=== PATIENT | female | born 1995 | race Caucasian/White ===

== ENCOUNTER 2022-05-23 06:11 | Inpatient (IN) | payer BC ==
[2022-05-23] MEDS: LACTATED RINGERS 1,000 ML IV SCH ×2 (06:35→20:08)
[2022-05-23] MEDS ORDERED: LIDOCAINE 0.5% (PF) 5 MG/ML (50 ML SDV) SQ PRN (06:42)
[2022-05-23] MEDS ORDERED: TERBUTALINE 1 MG/ML VIAL SQ PRN (06:42)
[2022-05-23 06:54] LABS: Basophils % (A) 0 %; Eosinophils # (A) 0.2 k/uL (0-0.7); Eosinophils % (A) 2 %; HCT 32.4 % (34.0-46.0); HGB 10.6 gm/dL (11.4-16.0); Lymphocytes # (A) 1.9 k/uL (1.0-4.8); Lymphocytes % (A) 24 %; MCH 27.7 pg (25.0-35.0); MCHC 32.6 g/dL (31.0-37.0); Mean Platelet Volume 9.1; Monocytes # (A) 0.3 k/uL (0-1.0); Monocytes % (A) 4 %; Neutrophils # (A) 5.5 k/uL (1.3-7.7); Neutrophils % (A) 68 %; Platelet Count 209 k/uL (150-450); RBC 3.81 m/uL (3.80-5.40); RDW 13.2 % (11.5-15.5); WBC 8.1 k/uL (3.8-10.6)
[2022-05-23] MEDS: OXYTOCIN 30 UNITS/500 ML NS 30 UNIT in SALINE 1 500ML.BAG IV SCH ×2 (06:59→16:37)
--- NOTE | 2022-05-23 07:54 | P.HPOB ---
History of Present Illness H&P Date: 05/23/22 Chief Complaint: Here for induction of labor with favorable cervix This is a 26-year-old female 1 para 0 EDC 05/25/2022 at 39-5/7 weeks' gestation who presents this morning for induction. Fetus is been active throughout the . She denies vaginal bleeding or fluid leakage. Past medical history is negative. Past surgical history is negative. ALLERGIES none known. Family history essentially negative. Social history patient is a former tobacco smoker, none with . She is , her is present and involved. She denies alcohol or drug use. history is significant for blood type AB+, rubella status immune. VDRL testing, urine culture, hepatitis B surface antigen, HIV testing, gonorrhea and chlamydia cultures, group B strep cultures all negative. One-hour Glucola 120. On exam patient is 5 foot 6 inches, 194 pounds, blood pressure 111/69. General exam is within normal limits. Cervix is 4 cm dilated, 70% effaced, -1 station, vertex presentation. Artificial amniorrhexis reveals clear fluid. heart rate is consistent with reactive NST. Impression: 39-5/7 weeks intrauterine , here for induction of labor, all signs reassuring. Plan: Oxytocin per hospital protocol. Close maternal and surveillance. Analgesic options reviewed. Anticipate normal spontaneous vaginal delivery. Review of Systems Constitutional: Reports as per HPI Past Medical History Past Medical History: No Reported History History of Any Multi-Drug Resistant Organisms: None Reported Past Surgical History: No Surgical Hx Reported Past Anesthesia/Blood Transfusion Reactions: No Reported Reaction Past Psychological History: No Psychological Hx Reported Smoking Status: Current every day smoker Past Alcohol Use History: Occasional Past Drug Use History: None Reported Medications and Allergies Home Medications Medication Instructions Recorded Confirmed Type Vit No.179/Iron/Folic 1 each PO 05/23/22 History [ Tablet] Allergies Allergy/AdvReac Type Severity Reaction Status Date / Time No Known Allergies Allergy Verified 05/23/22 06:27 Exam Vital Signs Temp Pulse Resp BP Pulse Ox 05/23/22 06:20 97.1 F L 100 16 111/69 99 Intake and Output 05/22/22 05/23/22 05/23/22 22:59 06:59 14:59 Other: Weight 87.997 kg See dictation under HPI please Results Result Diagrams: 05/23/22 06:40 Abnormal Lab Results - Last 24 Hours (Table) 05/23/22 Range/Units 06:40 Hgb 10.6 L (11.4-16.0) gm/dL Hct 32.4 L (34.0-46.0) % Assessment and Plan Assessment: 39-5/7 weeks intrauterine , here for induction of labor with favorable cervix. All signs reassuring. Plan: Continue close maternal and surveillance. Oxytocin per hospital protocol. Analgesic options reviewed in detail. Anticipate normal spontaneous vaginal delivery. Time with Patient: Less than 30
[2022-05-23] MEDS ORDERED: BUTORPHANOL 1 MG/ML 1 ML VIAL IV PRN (12:20)
[2022-05-23] MEDS ORDERED: BENZOCAINE/MENTHOL SPRAY 1 GM/SPRAY AEROSOL TOPICAL PRN (16:28)
[2022-05-23] MEDS ORDERED: diphenhydrAMINE 25 MG CAP PO PRN (16:28)
[2022-05-23] MEDS ORDERED: diphenhydrAMINE 50 MG CAP PO PRN (16:28)
[2022-05-23] MEDS ORDERED: LANOLIN CREAM 5 GM TUBE TOPICAL PRN (16:28)
[2022-05-23] MEDS ORDERED: SIMETHICONE 80 MG CHEWABLE PO PRN (16:28)
[2022-05-23] MEDS ORDERED: HYDROCORTISONE 2.5% RECTAL CREAM 30 GM TUBE RECTAL PRN (16:28)
[2022-05-23] MEDS ORDERED: ZOLPIDEM 5 MG TAB PO PRN (16:28)
[2022-05-23] MEDS ORDERED: diphenhydrAMINE ELIXIR 25 MG/10 ML CUP PO PRN (16:28)
[2022-05-23] MEDS ORDERED: diphenhydrAMINE 50 MG/ML 1 ML VIAL IVP PRN ×2 (16:28)
[2022-05-23] MEDS ORDERED: ACETAMINOPHEN TAB 325 MG TAB PO PRN (16:28)
--- NOTE | 2022-05-23 16:28 | P.PROBDLV ---
Vaginal Delivery Note - . Vaginal Delivery Note: This is a 26-year-old female 1 para 0 EDC 05/25/2022 at 39-5/7 weeks' gestation who presented for induction with favorable cervix. Blood type is AB+, rubella status immune, group B strep cultures negative. Please see dictated history and physical for details. Artificial amniorrhexis revealed clear fluid. Oxytocin was started and titrated per hospital protocol. Patient progressed well through the first stage of labor, declining epidural, receiving Stadol 1. She became completely dilated at 1514 hrs. and began the second stage of labor at that time. Excellent maternal expulsive efforts were employed. Perineal body was ultimately prepped and draped in the usual sterile fashion. 's head delivered occiput anterior and she restituted accordingly. There was no nuchal cord noted. The right or anterior shoulder was gently delivered from underneath the pubic symphysis at which time the oropharynx, nasopharynx and external nares were bulb suctioned. Patient officially delivered a liveborn female at 1603 hrs. Umbilical cord was doubly clamped and ligated, she was handed to waiting nurses for evaluation where scores of 9 and 9 at one and 5 minutes respectively were given. Careful inspection of the cervix, vagina, perineum, periurethral, and perirectal areas revealed a small left perineal laceration easily repaired in the usual fashion utilizing 1% lidocaine and rapide suture. Fundus is firm and in the midline, symmetric and 18 week size upon completion of delivery. Infant weighs 3735 g or 8 lbs. 4 oz. Estimated blood loss 250 mL's. Patient and her family are allowed to begin the bonding experience in the LDR.
[2022-05-23] MEDS: IBUPROFEN 600 MG TAB PO SCH (16:37)
[2022-05-23] MEDS: SENNOSIDES-DOCUSATE SODIUM 1 EACH TAB PO SCH ×2 (20:11→20:34)
[2022-05-24] MEDS: LACTATED RINGERS 1,000 ML IV SCH ×2 (01:04→10:05)
[2022-05-24] MEDS: IBUPROFEN 600 MG TAB PO SCH ×6 (01:04→23:51)
[2022-05-24] MEDS: SENNOSIDES-DOCUSATE SODIUM 1 EACH TAB PO SCH ×2 (10:05→19:51)
--- NOTE | 2022-05-24 10:55 | P.DS ---
Providers Date of admission: 05/23/22 06:11 Expected date of discharge: 05/24/22 Attending physician: Tegan Strange Primary care physician: Stated None - Discharge Diagnosis(es) (1) Normal spontaneous vaginal delivery Current Visit: Yes Status: Acute Hospital Course: the patient is a 26-year-old 1 para 0 admitted at 39-5/7 weeks by good dating parameters. She is admitted for induction with all signs reassuring. Her has been uncomplicated and group B strep status is negative. On labor and delivery, she had Pitocin started followed by artificial rupture of membranes. she progressed through the active phase of labor to complete and pushed to a normal spontaneous vaginal delivery of a viable 8 lbs. 4 oz. baby girl with Apgars of 9 at 1 minute and 9 at 5 minutes. Her course was unremarkable vital signs remained stable and her temperature was afebrile throughout. She was deemed stable for discharge on day #1 was discharged home to follow-up in the office in 6 weeks' time routinely. Discharge instructions included calling for any significantly increased bleeding or foul-smelling lochia, significantly increased fever or abdominal pain, perineal complaints, breast complaints, or anything else that concerned her. She is additionally instructed to have nothing in the vagina for at least 6 weeks time to include intercourse. She understood her instructions and agrees to follow up as noted above. Discharge medications included continued vitamins as she has opted to breast-feed. She was otherwise to use [id number] analgesic pain medications as needed. Maternal blood type is AB+ and rubella status is immune. Procedures: #1. Pitocin induction #2. Artificial rupture of membranes #3. Normal spontaneous vaginal delivery #4. Repair of perineal laceration Patient Condition at Discharge: Stable Plan - Discharge Summary New Discharge Prescriptions: No Action Vit No.179/Iron/Folic [ Tablet] 1 each PO Discharge Medication List Vit No.179/Iron/Folic [ Tablet] 1 each PO 05/23/22 [History] Follow up Appointment(s)/Referral(s): Tegan Strange MD [STAFF PHYSICIAN] - 6 Weeks Discharge Disposition: HOME SELF-CARE
[2022-05-24 23:56] VITALS: RESP 16
[2022-05-25] MEDS: SENNOSIDES-DOCUSATE SODIUM 1 EACH TAB PO SCH (08:26)
[2022-05-25 12:17] VITALS: BP 120/74; PULSE 77; TEMP 97.6
== END 2022-05-25 13:40 | disposition home or self-care (01) | DRG 807 ==
LOC: 4FBP 06:11
PROVIDERS: ADMIT Obstetrics & Gynecology; ATTEND Obstetrics & Gynecology
PROC: 0HQ9XZZ Repair Perineum Skin, External Approach (ICD-10-PCS; principal; 2022-05-23)
PROC: 10907ZC Drainage of Amniotic Fluid, Therapeutic from Products of Conception, Via Natural or Artificial Opening (ICD-10-PCS; principal; 2022-05-23)
PROC: 10E0XZZ Delivery of Products of Conception, External Approach (ICD-10-PCS; principal; 2022-05-23)
PROC: 3E033VJ Introduction of Other Hormone into Peripheral Vein, Percutaneous Approach (ICD-10-PCS; principal; 2022-05-23)
DX: O71.82 Other specified trauma to perineum and vulva (principal); Z37.0 Single live birth; O99.334 Smoking (tobacco) complicating childbirth; F17.210 Nicotine dependence, cigarettes, uncomplicated; Z3A.39 39 weeks gestation of pregnancy
CPT/HCPCS: 85025; 86850; 86900; 86901

== ENCOUNTER 2023-05-20 16:07 | Emergency (ER) | payer BC ==
[2023-05-20 16:34] VITALS: BP 125/78; PULSE 79; RESP 18; TEMP 97.8
--- NOTE | 2023-05-20 16:43 | ED ---
Chest Pain HPI - General Chief Complaint: Chest Pain Stated Complaint: chest pain L arm numbness Time Seen by Provider: 05/20/23 16:41 Source: patient, RN notes reviewed Mode of arrival: ambulatory Limitations: no limitations - History of Present Illness Initial Comments: This is a 27-year-old female who presents to the emergency department for chest pain and a lump in her neck. She noticed the lump in the left side of her neck approximately 3 weeks ago. Believes that it is getting smaller, however it is painful. She is also having pain going around and down the back of the neck, and wonders if it may be related to this. Denies any history of similar symptoms in the past. She has not had any coughing, congestion, or other upper respiratory symptoms. Yesterday, states that she developed pain in the chest as well as discomfort in the left arm. She had shortness of breath associated with this. The chest pain has since improved, however she does continue to have residual shortness of breath. Also states that she feels very dizzy, which has also been present for the last 3 weeks. She has increased her water consumption without improvement in symptoms. MD Complaint: chest pain - Related Data Home Medications Medication Instructions Recorded Confirmed Vit No.179/Iron/Folic 1 tab PO DAILY 05/23/22 05/20/23 [ Tablet] Amoxicillin 500 mg PO Q8H 05/20/23 05/20/23 Allergies Allergy/AdvReac Type Severity Reaction Status Date / Time No Known Allergies Allergy Verified 05/20/23 21:45 Review of Systems ROS Statement: Those systems with pertinent positive or pertinent negative responses have been documented in the HPI. ROS Other: All systems not noted in ROS Statement are negative. Past Medical History Past Medical History: No Reported History History of Any Multi-Drug Resistant Organisms: None Reported Past Surgical History: No Surgical Hx Reported Past Anesthesia/Blood Transfusion Reactions: No Reported Reaction Past Psychological History: No Psychological Hx Reported Smoking Status: Current every day smoker Past Alcohol Use History: Occasional Past Drug Use History: None Reported General Exam - General Exam Comments Initial Comments: Visual Physical Exam Vital signs reviewed General: Well-appearing, nontoxic, no acute distress. Head: Normocephalic, atraumatic Eyes: PERRLA, EOMI ENT: Airway patent Chest: Nonlabored breathing Skin: No visual rash, normal skin tone Neuro: Alert and oriented 3 Musculoskeletal: No gross abnormalities Limitations: no limitations General appearance: alert, in no apparent distress Head exam: Present: atraumatic, normocephalic, normal inspection Neck exam: Present: other (Palpable lump to the left lateral aspect of the cervical spine) Respiratory exam: Present: normal lung sounds bilaterally. Absent: respiratory distress, wheezes, rales, rhonchi, stridor Cardiovascular Exam: Present: regular rate, normal rhythm, normal heart sounds. Absent: systolic murmur, diastolic murmur, rubs, gallop, clicks Neurological exam: Present: alert, oriented X3, CN II-XII intact Psychiatric exam: Present: normal affect, normal mood Skin exam: Present: warm, dry, intact, normal color. Absent: rash Course Vital Signs 05/20/23 16:13 Temperature 97.8 F Pulse Rate 79 Respiratory 18 Rate Blood Pressure 125/78 O2 Sat by Pulse 100 Oximetry Chest Pain MDM - MDM This is a 27 year old female who presents to the emergency department for chest pain and a lump to the left side of her neck. Was pt. sent in by a medical professional or institution? @ -No Did you speak to anyone other than the patient for history? @ -No Did you review nursing and triage notes? @ -Yes, and I agree, it is accurate with regards to the patient's symptoms. Were old charts reviewed? @ -No Differential Diagnosis? @ -Differential Chest Pain: Stable Angina, Unstable Angina, STEMI, NSTEMI Aortic Dissection, Pneumothorax, Musculoskeletal, Esophageal Spasm GERD, Cholecystitis, Pancreatitis, Zoster, this is not meant to be an all-inclusive list. EKG interpreted by me (3pts min.)? @ -EKG interpreted by me demonstrating the following: Sinus rhythm. Darvin tricular rate 79 bpm, UT interval 128 ms, QRS duration 79 ms, QTC 400 ms. X-rays interpreted by me (1pt min.)? @ -Chest x-ray obtained, my interpretation identifies no localized consolidations or infiltrates. CT interpreted by me (1pt min.)? @ -CT scan of the neck and chest obtained. My interpretation identifies lymphadenopathy. U/S interpreted by me (1pt. min.)? @ -US of the soft tissue head/neck obtained. My interpretation identifies a lymph node. What testing was considered but not performed? (CT, X-rays, U/S, labs)? Why? @ -None What meds were considered but not given? Why? @ -None Did you discuss the management of the patient with other professionals? @ -No Did you reconcile home meds? @ -No Was smoking cessation discussed for >3mins.? @ -No Was critical care preformed (if so, how long)? @ -No Were there social determinants of health that impacted care today? How? (Homelessness, low income, unemployed, alcoholism, drug addiction, transportation, low edu. Level, literacy, decrease access to med. care, retirement, rehab)? @ -No Was there de-escalation of care discussed even if they declined? (Discuss DNR or withdrawal of care, Hospice)? @ -No What co-morbidities impacted this encounter? (DM, HTN, Smoking, COPD, CAD, Cancer, CVA, Hep., AIDS, mental health diagnosis, sleep apnea, morbid obesity)? @ -None Was patient admitted / discharged? @ -Discharged. Lab work obtained revealing leukocytosis and was otherwise unremarkable. Patient's pain had essentially resolved in the emergency de partment. Chest x-ray obtained revealing no acute process. US of the soft tissue neck over the palpable lump was obtained. US demonstrates a vascular left neck lymph node and advised correlation for reactive lymphadenopathy vs adenitis, and a CT scan of the neck was advised. CT scan of the neck was obtained. This redemonstrated the minimally enlarged left jugulodigastric lymph node seen on the ultrasound. They advised a follow-up in 1-2 months to resolution. Discussed with the patient the option of antibiotics, however she states that she saw her dentist earlier today regarding a dental infection and was just started on amoxicillin. Advised she continue to take these as prescribed and to otherwise follow-up with her primary care provider for further evaluation of ongoing symptoms. Patient discharged home in stable condition. Undiagnosed new problem with uncertain prognosis? @ -None Drug Therapy requiring intensive monitoring for toxicity (Heparin, Nitro, Insulin, Cardizem)? @ -None Were any procedures done? @ -None Diagnosis/symptom? @ -Chest pain, lymphadenopathy, dizziness Acute, or Chronic, or Acute on Chronic? @ -Acute Uncomplicated (without systemic symptoms) or Complicated (systemic symptoms)? @ -Uncomplicated Side effects of treatment? @ -None Exacerbation, Progression, or Severe Exacerbation] @ -Not applicable Poses a threat to life or bodily function? @ -No Return precautions reviewed in depth, the patient is instructed to return to the emergency department with any new, worsening, or concerning symptoms. Patient verbalized understanding. This case was discussed in detail with the attending ED physician, Dr. Leggett. Presentation, findings, and treatment plan discussed in detail as well. Disposition Clinical Impression: Dizziness, Lymphadenopathy, Chest pain Disposition: HOME SELF-CARE Instructions (If sedation given, give patient instructions): Chest Pain (ED), Lymphadenopathy (ED), Noncardiac Chest Pain (ED) Additional Instructions: Return to the emergency department with any new, worsening, or concerning symptoms. Continue taking the Amoxicillin prescribed by your dentist. Alternate with ibuprofen and tylenol as needed for pain relief. Follow up with your primary care provider in 1-2 days. Is patient prescribed a controlled substance at d/c from ED?: No Referrals: Terrance Song DO [Primary Care Provider] - 1-2 days Time of Disposition: 21:38
--- NOTE | 2023-05-20 17:00 | XR ---
EXAMINATION TYPE: XR chest 2V DATE OF EXAM: 05/20/2023 4:56 PM CLINICAL INDICATION:Female, 27 years old with history of Chest pain; [facility] COMPARISON: Chest radiographs from 05/20/2023 TECHNIQUE: XR chest 2V Frontal and lateral views of the chest. FINDINGS: Lungs/Pleura: There is no evidence of pleural effusion, focal consolidation, or pneumothorax. Pulmonary vascularity: Unremarkable. Heart/mediastinum: Cardiomediastinal silhouette is unremarkable. Musculoskeletal: No acute osseous pathology. IMPRESSION: No acute cardiopulmonary disease/process.
--- NOTE | 2023-05-20 18:26 | US ---
EXAMINATION TYPE: US thyroid st tissue head/neck DATE OF EXAM: 05/20/2023 COMPARISON: NONE CLINICAL INDICATION: Female, 27 years old with history of Left sided neck mass; Lump left neck for 3 days TECHNIQUE: Grayscale imaging of the area of concern in the left neck. FINDINGS: Scanned area of concern, left neck, lymph node visualized = 3.7 x 1.5 x 2.6cm this has fat ty hilum with thickened cortex measuring up to 8 mm with extensive vascular flow. IMPRESSION: Vascular left neck lymph node correlate for reactive lymphadenopathy versus adenitis, con technical fellow short-term follow-up with CT neck with IV contrast.
[2023-05-20 20:18] LABS: Basophils % (A) 0 %; Eosinophils # (A) 0.2 k/uL (0-0.7); Eosinophils % (A) 2 %; HCT 41.9 % (34.0-46.0); HGB 13.7 gm/dL (11.4-16.0); Lymphocytes # (A) 2.1 k/uL (1.0-4.8); Lymphocytes % (A) 18 %; MCHC 32.7 g/dL (31.0-37.0); MCV 85.8 fL (80.0-100.0); Mean Platelet Volume 7.5; Monocytes # (A) 0.4 k/uL (0-1.0); Monocytes % (A) 4 %; Neutrophils # (A) 8.9 k/uL (1.3-7.7); Neutrophils % (A) 75 %; Platelet Count 313 k/uL (150-450); RBC 4.88 m/uL (3.80-5.40); RDW 13.1 % (11.5-15.5); WBC 11.8 k/uL (3.8-10.6)
[2023-05-20 20:28] LABS: Appearance,Urine Clear (Clear); Bilirubin,Urine Negative (Negative); Blood,Urine Negative (Negative); Color,Urine Colorless; Glucose,Urine (UA) Negative (Negative); Ketones,Urine Negative (Negative); Leukocyte Esterase,Urine Negative (Negative); Nitrite,Urine Negative (Negative); Protein,Urine Negative (Negative); Specific Gravity,Urine 1.009 (1.001-1.035); Urobilinogen,Urine <2.0 mg/dL (<2.0)
[2023-05-20 20:29] LABS: ALT 21 U/L (4-34); AST 20 U/L (14-36); African American GFR (CKD) >90 (>60 ml/min/1.73 sqM); Albumin 5.1 g/dL (3.5-5.0); Alkaline Phosphatase 130 U/L (38-126); Anion Gap 11 mmol/L; Blood Urea Nitrogen 10 mg/dL (7-17); Carbon Dioxide 24 mmol/L (22-30); Chloride 106 mmol/L (98-107); Glucose 107 mg/dL (74-99); Non-African American GFR(CKD) >90 (>60 ml/min/1.73 sqM); Potassium 3.7 mmol/L (3.5-5.1); Sodium 141 mmol/L (137-145); Total Bilirubin 0.4 mg/dL (0.2-1.3); Total Protein 8.2 g/dL (6.3-8.2)
[2023-05-20 20:44] LABS: HCG,Qualitative Serum Not Detected
--- NOTE | 2023-05-20 21:22 | CT ---
EXAMINATION TYPE: CT neck chest w con CT DLP: 425.7 mGycm, Automated exposure control for dose reduction was used. DATE OF EXAM: 05/20/2023 8:49 PM COMPARISON: Same-day ultrasound CLINICAL INDICATION:Female, 27 years old with history of Left neck lump, Possible lymph node on US;, left neck lump TECHNIQUE: Standard enhanced CT of the neck and chest. Axial sections with coronal and sagittal refo rmats were obtained. Contrast used:100 mL of Isovue 300 with IV Contrast, (none if empty) Oral contrast used: (none if empty) FINDINGS: Brain: Visualized portions are grossly unremarkable. Orbits: Unremarkable Sinuses: Grossly unremarkable. Spaces of the neck: Redemonstration of a left neck jugulodigastric lymph node seen on same day ultras ound measuring up to 16 mm in short axis. No other enlarged symptoms or identified. Right jugulodigas tric lymph node measuring up to 9 mm in short axis. Musculoskeletal: No acute osseous pathology. Vascular structures: Visualized major arteries are patent without evidence of aneurysm. Thoracic Inlet/airway: Airway is patent. The lung apices are clear. Soft tissues/Thyroid: Thyroid and remainder of the soft tissues are unremarkable. Other: none. LUNGS/ PLEURA: No focal consolidation, pneumothorax or pleural effusion. AIRWAY: Patent and unremarkable. HEART: Size within normal limits. MEDIASTINUM: No gross evidence of adenopathy. VASCULATURE: No aortic aneurysm. MUSCULOSKELETAL: No acute osseous abnormalities SOFT TISSUES/LYMPH NODES: Unremarkable. LOWER NECK: No significant findings. UPPER ABDOMEN: No significant findings. IMPRESSION Redemonstration of minimally enlarged left jugulodigastric lymph node seen on same day ultrasound ike suring up to 16 mm in short axis which is enhancing. No other lymph nodes are identified. Consider sh ort-term follow-up in one to 2 months to ensure resolution.
== END 2023-05-20 22:30 | disposition home or self-care (01) ==
LOC: EC 16:07
DX: R07.9 Chest pain, unspecified (principal); R42 Dizziness and giddiness; R59.1 Generalized enlarged lymph nodes; F17.200 Nicotine dependence, unspecified, uncomplicated
CPT/HCPCS: 99285 ×2; 36415; 93005; 80053; 84443; 84484; 85025; 86308; 81003; 81025; 84703; 71046; 76536; 70491; 71260; Q9967

== ENCOUNTER → 2023-07-01 | Outpatient (CLI) | payer BC ==
--- NOTE | 2023-07-01 12:45 | CT ---
EXAMINATION TYPE: CT soft tissue neck w con DATE OF EXAM: 07/01/2023 12:36 PM COMPARISON: 05/20/2023. HISTORY: Swelling in left neck. CT DLP: 314.9 mGycm Automated exposure control for dose reduction was used. CONTRAST: CT scan of the neck is performed following with IV Contrast, patient injected with 100 mL of Isovue 3 00. Axial images are obtained, coronal and sagittal reformatted images are reviewed. FINDINGS: Airway: No gross abnormality seen. Parotid/submandibular glands: No gross abnormality seen. Carotid/Vascular Structures: Osseous Structures: Unremarkable. Other: Unchanged slightly enlarged left cervical chain lymph node measuring 1.2 cm in short axis diam eter seen on series 3 image 55. There is no additional adenopathy. IMPRESSION: Unchanged slightly enlarged lymph node in the left cervical chain with compared to the previous exami nation. No new adenopathy is identified. Definitive diagnosis may require tissue sampling.
== END | disposition home or self-care (01) ==
LOC: RADCTMAIN 12:09
PROVIDERS: ATTEND Internal Medicine
DX: R59.0 Localized enlarged lymph nodes (principal)
CPT/HCPCS: 70491; Q9967

== ENCOUNTER 2023-08-17 12:53 | Day surgery (SDC) | payer BC ==
[2023-08-17 13:41] VITALS: TEMP 98
[2023-08-17 14:27] VITALS: RESP 16
--- NOTE | 2023-08-17 14:41 | US ---
EXAMINATION TYPE: US biopsy lymph node DATE OF EXAM: 08/17/2023 2:30 PM CLINICAL INDICATION:Female, 28 years old with history of R22.1 LOCALIZED SWELLING, MASS AND LUMP, NEC K; COMPARISON: CT 07/01/2023 ATTENDING: Dr. Menendez TECHNIQUE: Ultrasound guided percutaneous biopsy of enlarged left neck lymph node using coaxial method. The robin ent was monitored by a qualified trained nurse independent of the Radiologist. The patient declined s edation. FINDINGS: The procedure was explained to the patient. All questions were answered and informed consent was obta ined. The patient was placed supine and transverse ultrasound images of the anterior enlarged upper left ce rvical lymph node were obtained. The overlying skin was marked and prepped using sterile method. Timeout was taken per protocol. Follo wing administration 1% local lidocaine anesthesia into the skin and 1% lidocaine/epinephrine into the deeper tissues to the biopsy target, an 18-gauge Bard biopsy system was advanced with needle tip vis ualized within the lymph node. A total three 18-gauge core biopsies were obtained, placed in formalin solution, and sent to patholog y. The needle was removed. Other additional ultrasound scanning shows no abnormal fluid collection or ev ident complication. Hemostasis was obtained and a dressing was placed. Patient was left to postprocedure observation in stable condition. IMPRESSIONS: Status post ultrasound guided core needle biopsy of the dominant, enlarged upper left cervical lymph node. Pathology results pending.
[2023-08-17 15:11] VITALS: BP 111/72; PULSE 78
== END 2023-08-17 14:50 | disposition home or self-care (01) ==
LOC: RADPROMAIN 12:53
PROVIDERS: ATTEND Otolaryngology
DX: L92.8 Other granulomatous disorders of the skin and subcutaneous tissue (principal)
CPT/HCPCS: 38505; 76942; 88305; 88312